=== PATIENT | male | born 1985 ===

== ENCOUNTER 2021-03-04 18:36 | Emergency (ER) | payer SELFPAY ==
[~2021-03-04] VITALS: Ht 172.7 cm; Wt 95.8 kg
[2021-03-04 18:41] VITALS: BP 142/98
--- NOTE | 2021-03-04 18:46 | NUR ---
WHEN PATIENT TOLD TO WAIT IN LOBBY, HE STATES " I JUST WANT A SPLINT OR AN KARLA WRAP, I DON'T WANT TO BE SEEN, AND BE CHARGED." EXPLAINED TO PATIENT THAT I CANNOT JUST GIVE HIM THESE ITEMS BECAUSE HE CHECKED INTO THE ED. PATIENT STATES "I'D RATHER NOT, I'M GOING TO LEAVE."
== END 2021-03-05 02:32 | disposition left against medical advice (07) ==
LOC: ED 19:00
DX: M79.89 Other specified soft tissue disorders (principal); Z53.21 Procedure and treatment not carried out due to patient leaving prior to being seen by health care provider